=== PATIENT | female | born 1955 ===

== ENCOUNTER 2024-04-02 07:33 | Day surgery (SDC) | payer OTHER ==
[2024-04-02] MEDS ORDERED: MIDAZOLAM HCL/PF 5 MG/ML VIAL IV ONE ×2 (10:00→10:15)
[2024-04-02] MEDS ORDERED: fentaNYL CITRATE 50 MCG/ML AMPUL IV ONE (10:00)
[2024-04-02] MEDS ORDERED: DIPHENHYDRAMINE HCL 50 MG/ML VIAL 1ML IV ONE (10:00)
== END 2024-04-02 12:10 | disposition home or self-care (01) ==
LOC: AMB-ENDOS 07:33
PROVIDERS: ATTEND Surgery
DX: D12.0 Benign neoplasm of cecum (principal); K63.5 Polyp of colon; K57.30 Diverticulosis of large intestine without perforation or abscess without bleeding